=== PATIENT | female | born 1930 | race Caucasian/White ===

== ENCOUNTER → 2018-07-20 | Outpatient (CLI) | payer OTHER ==
[~2018-07-20] VITALS: Ht 157.5 cm; Wt 54.8 kg
[~2018-07-20] MED LIST: DURAGESIC1 EACH TRANSDERM; HYDROCHLOROTHIA25 M2 PO; HYDROCODON-ACE1 EAC7 PO; KLOR-CON 1010 MEQ PO; SEROQUEL 25 MG25 M2 PO; [UNRECOGNIZED DRUG - OTHER] PO
--- NOTE | ~2018-07-20 | HPC ---
[facility] [address] [address] PAIN MANAGEMENT CONSULTATION Name: ELVIRA BHAT Room #: REG [facility].#: [id number] Admission: 07/20/18 Attend Phys: Chai Watson MD Discharge: Date of : [birth year] Report #: [id number] THIS REPORT FOR: //name// CC: Aditya Watson DATE OF SERVICE: 07/21/2018 REASON FOR CONSULTATION: Chronic pain, dementia and palliative care. The patient is here today with her daughter and also with a caregiver. The daughter is the primary historian. The patient has dementia and is unable to provide history. The patient is here at the request of Dr. Ferrara for help and suggestions in management. Mrs. Elvira Malhotra, the patient's daughter tearfully provided me with a story today that her mother was in a facility where she was heavily medicated. This disturbed her, and she took her from the facility to live with her. It is just the two of them currently in the house. The daughter provides for all activities of daily living with assistance in all dressing, hygiene, meal preparation, doctor's visits and medications. She has been following with Dr. Ferrara for some time. Regarding pain, daughter believes that there is pain in the low back due to compression fractures and also in the knees, particularly on the right. She has osteoarthritis. Pain intensity has been evaluated at 7-8/10, exacerbated by walking and standing. The patient did not complain of pain during her visit today. Responses when questions were asked directly to the patient were pleasant, though considered for the most part to be simple without substance and the daughter contradicted some of her mother's answers, which were generally affirmative and positive. One reason for the visit today is a discussion of palliative care. An extensive discussion ensued about the simplest definition of palliative care, which is focusing on comfort and a more complex discussion about palliative care as an aspect of end of life care focusing on symptom management, supportive family and in essence, a form of assisted care provided through hospice organization. Palliative care for some has been considered a referral to hospice for patients who are not truly hospice appropriate at the time of referral. Generally, this is due to assessments that the patient's longevity may be longer than 6 months. The patient is 87 years of age. She does have a number of comorbidities including aspiration, which can be a late sign of depression, osteoporosis with [facility] [address] [place] [address] PAIN MANAGEMENT CONSULTATION Name: ELVIRA BHAT [facility]: [facility] [id number] Admission: 07/20/18 Attend Phys: Chai Watson MD Discharge: Date of : [birth year] Report #: [id number] history of compression fractures. Lately, she had lost some weight and has shown less interest in eating. MEDICATIONS: Potassium, hydrocodone 5/325 p.r.n., hydrochlorothiazide, Seroquel 25 mg initiated at 1/2 tablet, now full tablet at bedtime and fentanyl patch 12 mcg. ALLERGIES: None. PAST MEDICAL HISTORY: Significant for prior treatment of hypertension. Compression fractures, chronic pain, osteoarthritis. REVIEW OF SYSTEMS: Some dyspnea on exertion, some shortness of breath when lying flat. Frequent coughing, particularly around the time of eating associated with shortness of breath, loss of appetite, prior history of right hemicolectomy, frequent urination, incontinence, nocturia. The patient suffers from significant insomnia, confusion and dementia. SOCIAL HISTORY: She lives with her daughter. Does not use alcohol or tobacco. She is quite dependent on even the most basic care. Functional assessment tool was 64/70 suggesting significant interference with all activities of daily living. PHYSICAL EXAMINATION: GENERAL: This is a soft spoken, pleasant, confused 87-year-old. She is 5 feet 2 inches, 120 pounds. BMI is 22.1. HEENT: Reveals a right eye that has weakness of the lower eyelid and erythema of the sclerae and conjunctivae. Pupils were equal, round and reactive to light. EOMs were noted to be intact. Mucous membranes were moist. She has a cervicothoracic kyphosis and her head is forward and slightly flexed. NECK: Tender. She has difficulty with neck extension. CHEST: Clear with no wheezes. There was a grade 2/6 systolic murmur noted at the left sternal border. ABDOMEN: Soft. No palpable hepatosplenomegaly. No complaints to palpation along the cervical, thoracic or lumbar spine even in the area of marked kyphosis. No tenderness across the lumbosacral segment. She moves from sitting to standing position, but requires assistance, would consider a fall risk. It was difficult to provide sensory exam. Strength is judged to be symmetrical. Deep tendon reflexes are absent in the lower extremities. IMPRESSION: 1. Dementia, progressive. Dr. 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 2. Chronic pain. This is difficult to assess given her current level of [facility] [address] [place] [address] PAIN MANAGEMENT CONSULTATION Name: ELVIRA BHAT Room #: REG [facility] Ker[place]#: [id number] Admission: 07/20/18 Attend Phys: Chai Watson MD Discharge: Date of : [birth year] Report #: [id number] communication. Previous complaints associated with chronic back pain, upper back and neck pain and osteoarthritis. 3. Palliative care consultation. RECOMMENDATIONS: There is no simple pathway here going forward for Mrs. Malhotra. She has completed the important documentation including durable power of commercial real estate attorney for healthcare decisions and advanced directive has been completed. Her mother is classified as a do not resuscitate and we discussed the fact that if something were to happen that she would not aggressively approach resuscitation. Given the fact that she is aspirating at this point, that is often a late sign of dementia. I would consider that her life expectancy may be within 6 months. As a result, she would be a candidate for in-home hospice. This would allow Mrs. Malhotra to receive the assistance of a hospice organization and I think this is quite appropriate. The goal would be to remain at home to avoid any hospitalizations and/or aggressive treatments. I think this would be more appropriate and reasonable for her versus palliative care. Follow up in 1-2 months. I will assist hospice transfer if possible. By: [phone] Chai Watson MD /nt
[2018-07-20 13:21] VITALS: BP 138/78
== END ==
LOC: PAIN 07:12
DX: Z51.5 Encounter for palliative care (principal); F03.90 Unspecified dementia, unspecified severity, without behavioral disturbance, psychotic disturbance, mood disturbance, and anxiety; G89.29 Other chronic pain; M54.5 Low back pain; M54.2 Cervicalgia; M19.90 Unspecified osteoarthritis, unspecified site